=== PATIENT | female | born 1945 | race Caucasian/White ===

== ENCOUNTER 2020-08-27 07:33 | Day surgery (SDC) | payer MEDICARE, BC ==
[~2020-08-27] VITALS: Ht 167.6 cm; Wt 60.6 kg
[2020-08-27] VITALS (14 sets, daily range): BP systolic 79–122; BP diastolic 41–87
[2020-08-27] MEDS ORDERED: LORazepam 0.5 MG tablet PO PRN (08:05)
[2020-08-27] MEDS ORDERED: LIDOcaine/PRILOcaine 5gm cream TP ONE (08:05)
[2020-08-27] MEDS ORDERED: normal saline 1,000 ML IV SCH (08:05)
[2020-08-27] MEDS ORDERED: diphenhydrAMINE 25mg capsule PO PRN (08:05)
[2020-08-27] MEDS ORDERED: DOCU100C40 PO (08:13)
[2020-08-27] MEDS ORDERED: CALC-729 PO (08:13)
[2020-08-27] MEDS ORDERED: LECI400C2 PO (08:13)
[2020-08-27] MEDS ORDERED: FAMO40TA58 PO (08:13)
[2020-08-27] MEDS ORDERED: CHOL20004 PO (08:13)
[2020-08-27] MEDS ORDERED: Glucosamine PO (08:13)
[2020-08-27] MEDS ORDERED: CYAN-34 PO (08:13)
[2020-08-27] MEDS ORDERED: MAGN400C PO (08:13)
[2020-08-27] MEDS ORDERED: MECO10005 PO (08:13)
[2020-08-27] MEDS ORDERED: CARV3.122 PO (08:13)
[2020-08-27] MEDS ORDERED: midazolam 1 mg/ML 2ml injection ONE (08:55)
[2020-08-27] MEDS ORDERED: nitroGLYCERIN-Tridil 50MG/D5W 250 ML IV ONE (08:55)
[2020-08-27] MEDS ORDERED: iohexol 350MG/ML 100ml bottle IV ONE (08:56)
[2020-08-27] MEDS ORDERED: heparin 1,000unit/ml 10ml vial 10 ML ONE (08:56)
[2020-08-27] MEDS ORDERED: fentaNYL/PF 50MCG/1 ML 2ML syringe ONE (08:56)
[2020-08-27] MEDS ORDERED: iohexol 350 MG/ML 50ML vial IV ONE (08:56)
[2020-08-27] MEDS ORDERED: LIDOcaine 1% (10mg/ml)w/preservative injection 20ml MDV ONE (08:56)
[2020-08-27 08:57] LABS: BASOPHILS # (AUTO) 0.1 X10'3 (0-0.2); EOSINOPHILS # (AUTO) 0.1 X10'3 (0-0.9); EOSINOPHILS % (AUTO) 2.5 % (0-6); HEMATOCRIT 38.6 % (35.0-45.0); LYMPHOCYTES # (AUTO) 1.5 X10'3 (1.1-4.8); LYMPHOCYTES % (AUTO) 25.8 % (21-51); MEAN CORPUSCULAR HGB CONC 33.5 g/dL (33.0-36.5); MEAN CORPUSCULAR VOLUME 92.4 FL (78-98); MEAN PLATELET VOLUME 8.3 FL (7.4-10.4); MONOCYTES # (AUTO) 0.5 X10'3 (0-0.9); NEUTROPHILS # (AUTO) 3.5 X10'3 (1.8-7.7); NEUTROPHILS % (AUTO) 61.7 % (42-75); PLATELET COUNT 191 X10'3 (140-440); RED BLOOD COUNT 4.18 X10'6 (4.20-5.60); RED CELL DISTRIBUTION WIDTH 14.3 % (11.5-14.5); WHITE BLOOD COUNT 5.7 X10'3 (4.5-11.0)
[2020-08-27 09:08] LABS: ALBUMIN 3.8 G/DL (3.4-5.0); ANION GAP 9 (8-16); BLOOD UREA NITROGEN 20 MG/DL (7-18); BUN/CREATININE RATIO 32.8 (6.6-38.0); CALCIUM 8.8 MG/DL (8.5-10.1); CHLORIDE 106 MMOL/L (99-107); CREATININE 0.61 MG/DL (0.40-0.90); GLUCOSE 89 MG/DL (70-104); SODIUM 142 MMOL/L (135-145); TOTAL CARBON DIOXIDE 26.8 MMOL/L (24-32); eGFR > 90 ML/MIN
[2020-08-27 09:09] LABS: PARTIAL THROMBOPLASTIN TIME 28 SECONDS (22-32)
[2020-08-27] MEDS ORDERED: HYDROcodone/acetaminophen 10/325mg tab PO PRN (11:00)
[2020-08-27] MEDS ORDERED: HYDROcodone/acetaminophen 5mg/325mg tablet PO PRN (11:00)
[2020-08-27] MEDS ORDERED: acetaminophen 325mg tablet PO PRN (11:00)
== END 2020-08-27 15:50 | disposition home or self-care (01) ==
LOC: SSTAY O 07:33
PROVIDERS: ATTEND Internal Medicine Cardiovascular Disease
DX: R94.39 Abnormal result of other cardiovascular function study (principal); I25.10 Atherosclerotic heart disease of native coronary artery without angina pectoris; I34.0 Nonrheumatic mitral (valve) insufficiency; I71.2 Thoracic aortic aneurysm, without rupture; I71.4 Abdominal aortic aneurysm, without rupture; Z90.710 Acquired absence of both cervix and uterus; Z98.890 Other specified postprocedural states; Z87.891 Personal history of nicotine dependence; Z79.01 Long term (current) use of anticoagulants; Z79.899 Other long term (current) drug therapy
CPT/HCPCS: 36415; 76937; 80048; 85025; 85610; 85730; 93005; 93458; 99152; C1760; C1769; C1894; J1644; J2001; J2250; J3010; J7030; Q0163; Q9967; 99153; A4620; A6258; J3490

== ENCOUNTER 2023-09-29 11:41 | Day surgery (SDC) | payer MEDICARE, BC ==
[2023-09-22 17:20] LABS: BASOPHILS # (AUTO) 0.1 X10'3 (0-0.2); BASOPHILS % (AUTO) 1.1 % (0-1); EOSINOPHILS # (AUTO) 0.2 X10'3 (0-0.9); EOSINOPHILS % (AUTO) 3.3 % (0-6); LYMPHOCYTES # (AUTO) 1.8 X10'3 (1.1-4.8); LYMPHOCYTES % (AUTO) 27.5 % (21-51); MEAN CORPUSCULAR HGB CONC 33.6 g/dL (33.0-36.5); MEAN CORPUSCULAR VOLUME 92.4 FL (78-98); MEAN PLATELET VOLUME 8.8 FL (7.4-10.4); MONOCYTES # (AUTO) 0.7 X10'3 (0-0.9); MONOCYTES % (AUTO) 10.9 % (2-12); NEUTROPHILS # (AUTO) 3.7 X10'3 (1.8-7.7); NEUTROPHILS % (AUTO) 57.2 % (42-75); PRE OP HEMATOCRIT 35.8 % (35.0-45.0); PRE OP PLATELET COUNT 191 X10'3 (140-440); PRE OP WHITE BLOOD COUNT 6.5 10'3 (4.8-10.8); RED BLOOD COUNT 3.87 X10'6 (4.20-5.60); RED CELL DISTRIBUTION WIDTH 13.9 % (11.5-14.5)
[2023-09-22 17:32] LABS: ALBUMIN 3.9 G/DL (3.4-5.0); ALBUMIN/GLOBULIN RATIO 1.1 (1.1-1.5); ALKALINE PHOSPHATASE 73 IU/L (46-116); BLOOD UREA NITROGEN 22 MG/DL (7-18); BUN/CREATININE RATIO 33.8 (10.0-20.0); CALCIUM 9.2 MG/DL (8.5-10.1); CHLORIDE 105 MMOL/L (99-107); CREATININE 0.65 MG/DL (0.40-0.90); PRE OP ALT 17 U/L (30-65); PRE OP ANION GAP 5 (8-16); PRE OP AST 18 U/L (10-37); PRE OP BILIRUB, TOTAL 0.3 MG/DL (0.0-1.0); PRE OP GLUCOSE 96 MG/DL (70-104); PRE OP POTASSIUM 4.2 MMOL/L (3.4-5.1); PRE OP SODIUM 141 MMOL/L (135-145); TOTAL PROTEIN 7.3 G/DL (6.4-8.2); eGFR 88 ML/MIN
[~2023-09-29] VITALS: Ht 264.2 cm; Wt 58.8 kg
[2023-09-29] VITALS (11 sets, daily range): BP systolic 133–155; BP diastolic 67–89; PULSE 60–83; RESP 11–17; TEMP 98.6; O2SAT 95–99
[2023-09-29] MEDS: cefazolin 2gm/D5W 100mL 100 ML IV ONE (05:30)
[~2023-09-29 11:41] MED LIST: ASCO100031 PO; ASPI-611 PO; ATOR20TA66 PO; CARV3.122 PO; DONE10TA44 PO; FAMO40TA58 PO; INUL2TAB5 PO; MELO-102 PO; MEMA5TAB15 PO; OMEG-166 PO
[2023-09-29] MEDS: BUPIVAcaine 2.5mg/ml inj 50ml vial (contains preservative) SQ ONE (11:48)
[2023-09-29] MEDS: famotidine 20mg tablet PO ONE (12:34)
[2023-09-29] MEDS: ringers solution, lacted 1,000 ML IV SCH (12:37)
[2023-09-29] MEDS ORDERED: fentaNYL/PF 50MCG/1 ML 2ML syringe ONE (14:58)
[2023-09-29] MEDS ORDERED: dexamethasone sod phosphate 4mg/ml inj. ONE (15:02)
[2023-09-29] MEDS ORDERED: ondansetron/PF 4mg/2ml inj IV PRN (15:05)
[2023-09-29] MEDS ORDERED: labetalol 20mg/4ml (5mg/ml) syringe IV PRN (15:05)
[2023-09-29] MEDS ORDERED: enalaprilat dihydrate 2.5mg/2ml vial IV PRN (15:05)
[2023-09-29] MEDS ORDERED: fentaNYL/PF 50MCG/1 ML 2ML syringe IV PRN ×2 (15:05)
[2023-09-29] MEDS ORDERED: ringers solution, lacted 1,000 ML IV SCH (15:05)
[2023-09-29] MEDS ORDERED: morphine 2 MG/ML inj. syringe IV PRN (15:05)
[2023-09-29] MEDS ORDERED: morphine 4 MG/ML inj SYRINge IV PRN (15:05)
[2023-09-29] MEDS ORDERED: BUPIVAcaine 2.5mg/ml inj 50ml vial (contains preservative) ONE (15:07)
[2023-09-29] MEDS ORDERED: bacitracin 15gm ointment TP ONE (15:07)
[2023-09-29] MEDS ORDERED: sevoflurane 250ml liquid IH ONE (15:24)
[2023-09-29] MEDS ORDERED: propofol inj 20 ML IV ONE (15:40)
[2023-09-29] MEDS ORDERED: ePHEDrine 50MG/ML INJ. ONE (15:40)
[2023-09-29] MEDS ORDERED: LIDOcaine 2% (20mg/ml) 5ml vial ONE (15:40)
[2023-09-29] MEDS ORDERED: rocuronium 10mg/ml inj IV ONE (15:41)
[2023-09-29] MEDS ORDERED: acetaminophen 1,000mg/100ml IV 100 ML IV ONE (15:41)
[2023-09-29] MEDS: bacitracin 15gm ointment TP ONE (16:31)
== END 2023-09-29 19:30 | disposition home or self-care (01) ==
LOC: PAS 11:41
PROVIDERS: ATTEND Podiatrist Foot & Ankle Surgery
DX: M20.12 Hallux valgus (acquired), left foot (principal); G89.18 Other acute postprocedural pain; E11.9 Type 2 diabetes mellitus without complications; E78.5 Hyperlipidemia, unspecified; F03.90 Unspecified dementia, unspecified severity, without behavioral disturbance, psychotic disturbance, mood disturbance, and anxiety; Z87.891 Personal history of nicotine dependence; Z90.710 Acquired absence of both cervix and uterus
CPT/HCPCS: 28298; 36415; 64450; 71046; 73620; 80053; 82948; 85025; 93005; A4215; A4618; A6222; A6253; A6402; A6446; A6449; A6455; A7000; C1713; J0131; J0690; J1100; J2001; J2405; J2704; J3010; J3490; J7030; J7120; Z7506; Z7508; Z7512; Z7610; 76000

== ENCOUNTER 2024-12-30 15:15 | Emergency (ER) | payer MEDICARE, BC ==
[~2024-12-30] VITALS: Ht 160 cm; Wt 67.0 kg
[~2024-12-30 15:15] MED LIST changes: -ASCO100031 PO; +ASCO10004 PO
--- NOTE | 2024-12-30 16:01 | Physician Documentation ---
History of Present Illness ~ Chief Complaint: Pain Stated Complaint: DEMENTIA Time Seen by MD: 15:22 OK to notify your PCP?: Yes Source: patient Mode of Arrival: POV Exam Limitations: no limitations HPI Presents via ambulance from [facility] for pain. She does have a history Lewy body dementia and is pleasantly confused. She is able to tell me that her lower abdomen is painful. Paperwork from the facility reveals that she is on comfort care. She is unsure of when her last bowel movement was but she does take docusate regularly per the facility records. Medication Reconciliation Allergies: Coded Allergies: No Known Allergies (Unverified , 08/27/20) Scheduled Ascorbic Acid (Vitamin C), 1 TAB PO DAILY, (Reported) Aspirin (Aspir 81), 1 TAB PO DAILY, (Reported) Atorvastatin Calcium (Atorvastatin Calcium), 1 TAB PO DAILY, (Reported) Carvedilol (Carvedilol), 1 TAB PO DAILY, (Reported) Donepezil Hcl (Aricept), 1 TAB PO DAILY, (Reported) Inulin (Fiber Gummies), 1 TAB PO DAILY, (Reported) Meloxicam (Meloxicam), 1 TAB PO DAILY, (Reported) Memantine HCl (Memantine HCl), 1 TAB PO BID, (Reported) Nitrofurantoin Monohyd/M-Cryst (Macrobid 100 mg Capsule), 1 CAP PO Q12H [place]-3/Dha/Epa/Fish Oil (Fish Oil 1,000 Mg Ec Softgel), 1 CAP PO DAILY, (Reported) Scheduled PRN Famotidine (Famotidine), 1 TAB PO DAILY PRN for indigestion/dyspepsia, (Reported) Past Medical History Past Medical History: Dementia Review of Systems All Other Systems at this time: Reviewed and Negative Physical Exam Vital Signs: RN Vital Signs have been reviewed: Yes, Temperature: 97.6, Source: Axillary, Heart Rate: 61, Respiratory Rate: 16, BP: 108/60, Pulse Oximetry: 96, Weight: 67.000 Oxygen Flow Rate: 0 Pulse Oximetry Reflects: adequate oxygenation Physical Exam General: Alert, no apparent distress. HEENT: PERRL, EOMI, no injection, moist mucous membranes. Neck: Full range of motion. Respiratory: Lungs clear, no respiratory distress. Chest: No accessory muscle use. Cardiovascular: Regular rate and rhythm, no murmurs. Gastrointestinal: Soft, nontender, nondistended. Bowels sounds present. Extremities: Normal range of motion, no deformity. Back: No CVA tenderness Neurologic: Oriented to self, Psychiatric: Normal mood and affect. Skin: Normal color, warm and dry. No edema, no ecchymosis. Progress Results/Orders Reviewed/noted all lab results: Yes Results/Orders Orders - YEN MARCANO Straight Cath For Urine Sample (12/30/24 15:38) Cult Urine + [address] (12/30/24 17:33) Completed Orders - YEN MARCANO Cbc/Diff (12/30/24 15:38) Ua W/Microscopic, Cult If Ind (12/30/24 17:10) Nitrofur [place]/Nitrofuran Macr (Macrobid (12/30/24 17:45) Medications Received in ER Medications (Trade) Dose Ordered Sig/Rosy Route PRN Reason Start Time Stop Time Status Last Admin Dose Admin (MacroBID capsule) 100 mg ONCE ONCE PO 12/30/24 17:45 12/30/24 17:52 DC 12/30/24 18:04 100 MG Vital Signs 12/30/24 12/30/24 15:27 15:30 Temp 97.6 Pulse 61 Resp 16 16 B/P (MAP) 108/60 Pulse Ox 96 O2 Flow Rate 0 Laboratory Tests Test 12/30/24 16:07 12/30/24 17:10 White Blood Count 11.3 H Red Blood Count 4.35 Hemoglobin 13.2 Hematocrit 39.3 Mean Corpuscular Volume 90.4 Mean Corpuscular Hemoglobin 30.4 Mean Corpuscular Hemoglobin Concent 33.7 Red Cell Distribution Width 14.0 Platelet Count 191 Mean Platelet Volume 7.9 Neutrophils (%) (Auto) 86.5 H Lymphocytes (%) (Auto) 8.7 L Monocytes (%) (Auto) 4.4 Eosinophils (%) (Auto) 0.1 Basophils (%) (Auto) 0.3 Neutrophils # (Auto) 9.7 H Lymphocytes # (Auto) 1.0 L Monocytes # (Auto) 0.5 Eosinophils # (Auto) 0.0 Basophils # (Auto) 0.0 CBC Comment Urine Specimen Description Straight cath Urine Color Yellow Urine Clarity Cloudy Urine pH 6.0 Urine Specific Lucien 1.025 Urine Protein 30 H Urine Glucose (UA) Negative Urine Ketones Trace H Urine Occult Blood Small Urine Nitrite Negative Urine Bilirubin Negative Urine Urobilinogen 0.2 Urine Leukocyte Esterase Small H Urine RBC 0-2 Urine WBC 50-100 H Urine Squamous Epithelial Cells Few Urine Bacteria 4+ Urine Mucus None seen Urine Culture Indicated Indicated Volume Urine Centrifuged 10 ml Urine Comment Medical Decision Making Additional information obtaine: old records Findings Limited information from patient due to her Lewy body dementia. Physical exam was unremarkable. Her urinalysis is positive for UTI. Her CBC shows mild leukocytosis with WBC 11.3. Vital signs have been stable. No signs of urosepsis. Urinary Diff Dx:Considerations: Include: AAA, Aortic dissection, Bowel obstruction, Impaction, Pancreatitis, Pyelonephritis, Renal failure, Urolithiasis, Urinary retention Genital Diff Dx:Considerations: Include: Constipation, Trauma, Vaginitis Departure Disposition: HOME / SELF CARE / HOMELESS Impression: Primary Impression: UTI (urinary tract infection) Condition: Stable Discharge Instructions: Urinary Tract Infection, Adult, [id number] Additional Instructions: Please take all antibiotics as prescribed. Drink plenty of water. Return back here for any new or worsening symptoms. Referrals: NO PRIMARY CARE PROVIDER (PCP) Prescriptions Nitrofurantoin Monohyd/M-Cryst (Macrobid 100 mg Capsule) 100 Mg Capsule 1 CAP PO Q12H for 7 Days, #14 CAP 0 Refills Prov: YEN MARCANO 12/30/24 Education Educated: Patient, Family Educated regarding: diagnosis, treatment, prognosis, need for follow up Additional Comment Medical Screen Exam This patient recieved a medical screening examination. After reviewing the individual's medical complaints with presenting symptoms and performing an appropriate physical examination, it was determined that no immediate life- threatening emergency medical condition is present. This individual is also not a women having contractions. Signature Scribe Signature: . Attestation: Scribed for Yen Marcano by Yen Santos NP . 12/30/24 18:14 Parts of this note were created using [employer] voice recognition software program. While efforts were made to correct any mistakes made by this voice recognition software program, nonsensical phrases may remain in this note. In addition, there may be errors and syntax, grammar, content and spelling. YEN MARCANO [facility] Dec 30, 2024 16:01
[2024-12-30 16:16] LABS: MEAN PLATELET VOLUME 7.9 FL (7.4-10.4); RED CELL DISTRIBUTION WIDTH 14.0 % (11.5-14.5)
[2024-12-30 17:24] LABS: LEUKOCYTE ESTERASE ,URINE SMALL (Neg); NITRITES, URINE NEGATIVE (Neg); OCCULT BLOOD,URINE SMALL (Neg)
[2024-12-30 17:32] LABS: UA COLLECTION TYPE STRAIGHT CATH
[2024-12-30 17:33] LABS: MUCUS STRANDS NONE SEEN /LPF (Neg); SQUAMOUS EPITHELIAL CELL,UR FEW /LPF (FEW)
[2024-12-30] MEDS ORDERED: NITR100C6 PO (17:46)
[2024-12-30] MEDS: nitrofuran monohydrate/nitrofuran macrocrysal 100 MG (MacroBID) capsule PO ONE (18:04)
[2024-12-30 18:29] VITALS: BP 162/75; PULSE 78; RESP 16; TEMP 97.8; O2SAT 96
== END 2024-12-30 19:10 | disposition home or self-care (01) ==
LOC: ER 15:15
DX: N39.0 Urinary tract infection, site not specified (principal); Z79.82 Long term (current) use of aspirin; Z79.899 Other long term (current) drug therapy
CPT/HCPCS: 36415; 81001; 85025; 87088; 99283; C1758; 87077; 87186